=== PATIENT | female | born 1975 | race Caucasian/White ===

== ENCOUNTER 2019-04-27 10:38 | Emergency (ER) | payer OTHER ==
[~2019-04-27] VITALS: Ht 167.6 cm; Wt 94.0 kg
[~2019-04-27 10:38] MED LIST: CEPH-443 PO; IBUP-1542 PO; MUPI22OI2 TOP; SULF1TAB31 PO
[2019-04-27 10:48] VITALS: Ht 167.6 cm; Wt 94.0 kg
[2019-04-27] MEDS ORDERED: ONDANSETRON (ODT) 4 MG TAB ODT STA (12:27)
[2019-04-27] MEDS ORDERED: LIDOCAINE 2%/EPI MPF (SDV) 20 ML VIAL INJ STA (12:27)
[2019-04-27] MEDS ORDERED: HYDROCODONE/APAP (10/325) TAB PO ONE (12:30)
== END 2019-04-27 14:28 | disposition home or self-care (01) ==
LOC: FTE 10:38
DX: N75.1 Abscess of Bartholin's gland (principal)
CPT/HCPCS: 56420; Z7502; Z7610